=== PATIENT | male | born 1960 | race Caucasian/White ===

== ENCOUNTER → 2017-10-12 | Outpatient (CLI) | payer OTHER | LOC: MC.RAD 13:00 | DX: N63.14 Unspecified lump in the right breast, lower inner quadrant (principal) ==

== ENCOUNTER 2020-07-26 12:10 | Emergency (ER) | payer OTHER ==
[~2020-07-26] VITALS: Ht 162.6 cm; Wt 81.8 kg
[2020-07-26 12:27] VITALS: TEMP 97.3
[2020-07-26 12:59] LABS: BASO # 0.1 (0.0-0.2); BASO % 1.3 % (0.0-2.0); EOS # 0.8 (0.0-0.7); EOS % 11.9 % (0-4.0); GRAN # 3.5 (1.4-6.5); GRAN % 54.9 % (42.2-75.2); HEMATOCRIT 46.9 % (42.0-52.0); HEMOGLOBIN 15.9 g/dl (13.5-18.0); LYMPH # 1.6 (1.2-3.4); LYMPH % 25.4 % (20.0-51.0); MEAN CELL VOLUME 90 fl (80.0-100.0); MEAN CORPUSCULAR HEMOGLOBIN 30 pg (27.0-31.0); MEAN CORPUSCULAR HGB CONC 34 g/dl (33.0-37.0); MEAN PLATELET VOLUME 9.9 fl (7.4-10.4); MONO # 0.4 (0.1-0.6); MONO % 6.3 % (1.7-9.3); PLATELET COUNT 176 K/mm3 (130-400); RED BLOOD COUNT 5.24 M/mm3 (4.20-5.60); REDCELL DISTRIBUTION WIDTH-CV 13.2 % (11.5-14.5)
[2020-07-26 13:04] LABS: INR 1.1 (0.8-3.0); PROTHROMBIN TIME 11.9 SECONDS (9.7-12.8)
[2020-07-26 13:07] LABS: PARTIAL THROMBOPLASTIN TIME 32.5 SECONDS (26.0-37.0)
[2020-07-26 13:40] VITALS: BP 116/84; PULSE 69
[2020-07-26 13:59] LABS: ALANINE AMINOTRANSFERASE 42 U/L (4-49); ALBUMIN 4.3 gm/dL (3.5-5.0); ALKALINE PHOSPHATASE 74 U/L (50-136); ANION GAP 8 mmol/L (7-16); AST,SGOT 42 U/L (15-37); BILIRUBIN,TOTAL 0.8 mg/dL (0.0-1.0); BLOOD UREA NITROGEN 17 mg/dL (9-20); CALCIUM 9.2 mg/dL (8.4-10.2); CARBON DIOXIDE 29 mmol/L (22-30); CHLORIDE 102 mmol/L (98-107); CREATININE, serum 0.98 (0.66-1.25); GLUCOSE 131 mg/dL (74-106); POTASSIUM 4.2 mmol/L (3.4-5.0); SODIUM 138 mmol/L (137-145); TOTAL PROTEIN 7.9 gm/dL (6.4-8.2)
[2020-07-26] MEDS ORDERED: TOPROL XL 25MG25 MG PO (14:09)
[2020-07-26 14:10] LABS: TROPONIN-I < 0.012 ng/mL (0.000-0.035)
== END 2020-07-26 14:29 | disposition home or self-care (01) ==
LOC: COL.ER 12:10
PROVIDERS: Family Medicine
DX: I48.91 Unspecified atrial fibrillation (principal)

== ENCOUNTER 2024-03-21 06:21 | Day surgery (SDC) | payer OTHER ==
[~2024-03-21] VITALS: Ht 162.6 cm; Wt 85.5 kg
[~2024-03-21 06:21] MED LIST: ELIQUIS 5MG PO; LR 1,000 ML IV SCH; Ondansetron 4 MG/2 ML VIAL IV PRN; TOPROL XL 25MG25 MG PO
[2024-03-21 07:24] VITALS: BP 131/88; PULSE 98; TEMP 97.5
[2024-03-21] MEDS ORDERED: Lidocaine PF 2% (20 MG/ML) 5 ML VIAL ONE (07:36)
[2024-03-21 08:30] VITALS: BP 109/86; PULSE 112; TEMP 97.5
[2024-03-21 08:45] VITALS: BP 113/96; PULSE 98
[2024-03-21 08:49] VITALS: BP 102/86; PULSE 107
--- NOTE | 2024-03-21 09:07 | NUR ---
Pt returns to [facility] from procedure at 0830 via cart. Ambulates to recliner with assist of 2. VSS. Lupeo and carlite given. Denies complaints. 0845- Discharge instructions reviewed, questions answered 0850- IV removed, pt dressed without issue. 0859- Dr. Turner in to talk with patient, returns. 0906- Pt discharges via w/c.
== END 2024-03-21 09:06 | disposition home or self-care (01) ==
LOC: SDCO 06:21
DX: Z12.11 Encounter for screening for malignant neoplasm of colon (principal); K29.50 Unspecified chronic gastritis without bleeding; K21.00 Gastro-esophageal reflux disease with esophagitis, without bleeding; K63.5 Polyp of colon; K63.89 Other specified diseases of intestine; I48.91 Unspecified atrial fibrillation; K76.0 Fatty (change of) liver, not elsewhere classified; Z98.890 Other specified postprocedural states; Z79.01 Long term (current) use of anticoagulants; Z86.73 Personal history of transient ischemic attack (TIA), and cerebral infarction without residual deficits; Z79.899 Other long term (current) drug therapy
CPT/HCPCS: J2704; J7120